=== PATIENT | male | born 1995 | race African-American/Black ===

== ENCOUNTER 2023-07-09 09:00 | Day surgery (SDC) | payer OTHER, MEDICAID ==
[2023-07-04 15:22] VITALS: BP 133/83
[~2023-07-09] VITALS: Ht 172.7 cm; Wt 95.5 kg
[2023-07-09 09:09] VITALS: BP 139/91
--- NOTE | 2023-07-09 10:21 | NUR ---
07/09/23 Jammie1 Meera Rivera 1014-PATIENT ARRIVED TO PACU ON 6L MASK RR EVEN. HOB ELEVATED. PATIENT REACTIVE TO VERBAL STIMULI REACHING HANDS TO NOSE RN ORIENTING PATIENT. PATIENT REMAINS VERY DROWSY EYES CLOSED. DRESSING TO NOSE CDI. SR. IVF INFUSING.
--- NOTE | 2023-07-09 10:55 | NUR ---
PT ARRIVES TO UNIT VIA STRETCHER FROM PACU. PT REPORTS PAIN 3/10 AND DESCRIBES THIS PAIN BURNING, BUT THAT IT IS TOLERABLE AT THIS TIME. PT REPORTS NO NAUSEA, DIZZINESS, OR SOB. VS TAKEN. SMALL AMOUNT OF DRAINAGE OUT OF RT NARE OF NOSTRIL, DRIP PAD IN PLACE. KENDRICK DRESSING AND PACKING REMAIN INTACT. PT IS DROWSY BUT ORIENTED. ICE WATER, APPLESAUCE, AND CRACKERS PROVIDED AT THIS TIME, PT TOLERATES WITHOUT DIFFICULTY SWALLOWING. CALL LIGHT WITHIN REACH, PT REPORTS NO FURTHER NEEDS AT THIS TIME.
[2023-07-09 10:57] VITALS: BP 147/106
[2023-07-09 11:50] VITALS: BP 153/93
--- NOTE | 2023-07-09 11:50 | NUR ---
IN PT ROOM FOR VS AND ASSESSMENT. PT REPORTS NO CHANGE IN PAIN LEVEL AT THIS TIME, REMAINS TOLERABLE, NO PRN MEDS GIVEN. DRESSING REMAINS INTACT. SMALL AMOUNT OF SS DRAINAGE FROM RT NARE, DRIP PAD IN PLACE. PT REPORTS NEED TO URINE VOID. PT REPORTS NO DIZZINESS OR NAUSEA W/STANDING AT BEDSIDE, GAIT IS STEADY. STANDBY ASSIST TO RESTROOM. PT URINE VOID 500 CLEAR/YELLOW URINE. PT BACK IN ROOM GETTING DRESSED, CALL LIGHT AT BEDSIDE FOR ASSISTANCE. PT STATES VERBAL UNDERSTANDING OF EDUCATION REGARDING NO BENDING OVER D/T INCREASE OF DRAINAGE.
--- NOTE | 2023-07-09 12:05 | NUR ---
THIS RN IN ROOM AT THIS TIME FOR DISCHARGE EDUCATION, PT STATES NO FURTHER QUESTIONS AT THIS TIME. ANTONINA (BROTHER) AT BEDSIDE FOR DISCHARGE EDUCATION WELL. PT ALSO ENCOURAGED TO FOLLOW-UP WITH PCP REGARDING ELEVATED BP, PT STATES THIS IS NORMAL FOR HIM AND RUNS IN FAMILY, PT STATES VERBAL UNDERSTANDING. IV DC'ED, CATH TIP INTACT, GAUZE/COBAN IN PLACE. PT OFF OF UNIT VIA WC BY THIS RN INTO PASSENGER SEAT OF VEHICLE, ALL BELONGINGS IN PT POSSESSION AT THIS TIME. PT STATES NO FURTHER NEEDS AT THIS TIME. NEW DRIP PAD IN PLACE AND MATERIALS FOR DRIP PAD CHANGES PROVIDED.
--- NOTE | 2023-07-16 11:28 | OR ---
[facility] [address] [place], [place] [address] Signed DATE OF OPERATION: 07/09/2023 SURGEON: Anthony Hdez MD PREOPERATIVE DIAGNOSIS: Nasal obstruction due to septal deformity and inferior turbinate hypertrophy. POSTOPERATIVE DIAGNOSIS: Nasal obstruction due to septal deformity and inferior turbinate hypertrophy. PROCEDURE: Septoplasty, cautery bilateral inferior turbinates. ANESTHESIA: General LMA. Lefty GUTIERRES. PREOPERATIVE HISTORY: Rajesh is a 28-year-old male with nasal obstruction, unresponsive to appropriate medications caused by septal deformity and inferior turbinate hypertrophy. He was taken to the operating room for the above-mentioned procedures. PROCEDURE AND FINDINGS: After informed consent, the patient was taken to the operating room, placed in a supine position where general LMA anesthesia was induced. The patient and procedure were verified. The patient received preoperative intranasal oxymetazoline and intravenous Ancef. Headlight speculum exam of the nasal cavity showed septal deformity with a large spur and flexion on the right side. The septal mucosa was injected with 1% lidocaine with epi. The mucosa was elevated off the deviated septal bone and cartilage and the deviation was removed with the Arlet. Airway was improved in this manner. The inferior turbinates were then cauterized with a long handle needle point cautery starting on the left side. Multiple transmucosal passes on the inferior turbinate. On the medial inferior surface starting anteriorly extending all the way back posteriorly, excellent shrinkage, decongestion of the turbinate was obtained. Minimal bleeding. Same procedure on the right inferior turbinate. Hemostasis was verified. Packing was then placed, trimmed Merocel one piece each side, coated with Neosporin, tied anteriorly over a pad. The pharynx was suctioned clear of blood and secretions. The patient was then awakened, extubated, transported to recovery room in good condition. COMPLICATIONS: Electronically Signed By: ANTHONY HDEZ MD 07/16/23 1128 PATIENT NAME: RAJESH ENCINAS OPERATIVE REPORT DATE OF : [birth year] REPORT #: [id number] PHYSICIAN: ANTHONY HDEZ MD PCP: GRACIA CAREY MD REPORT IS CONFIDENTIAL AND NOT TO BE RELEASED WITHOUT AUTHORIZATION [facility] [address] [place], [place] [address] Signed No complications. BLOOD LOSS: Minimal. SPECIMEN: No specimen. DRAINS: No drains. PACKING: One piece of Merocel in each nostril. Anthony Hdez MD GC/MODL /[id number] Copies: ~ Electronically Signed By: ANTHONY HDEZ MD 07/16/23 1128 PATIENT NAME: RAJESH ENCINAS OPERATIVE REPORT DATE OF : [birth year] REPORT #: [id number] PHYSICIAN: ANTHONY HDEZ MD PCP: GRACIA CAREY MD REPORT IS CONFIDENTIAL AND NOT TO BE RELEASED WITHOUT AUTHORIZATION
== END 2023-07-09 12:20 | disposition home or self-care (01) ==
LOC: DS 09:00 → OPS 09:00
PROVIDERS: ATTEND Otolaryngology
PROC: 09BM0ZZ Excision of Nasal Septum, Open Approach (ICD-10-PCS; principal; 2023-07-09 11:00)
DX: J34.2 Deviated nasal septum (principal); J34.3 Hypertrophy of nasal turbinates; J30.9 Allergic rhinitis, unspecified
CPT/HCPCS: 00160; A9270; J0131; J0690; J1100; J2001; J2250; J2405; J2704; J3010; J3490; J7121

== ENCOUNTER 2024-11-19 23:00 | Emergency (ER) | payer OTHER ==
[~2024-11-19] VITALS: Ht 172.7 cm; Wt 93.9 kg
[2024-11-19] MEDS ORDERED: DIPHTH,PERTUSS(ACELL),TET VAC 0.5 ML SYRINGE IM ONE (23:30)
[2024-11-19] MEDS ORDERED: AMOXICILLIN/CLAVULANATE K 875 MG HOME.PACK PO ONE (23:45)
[2024-11-19] MEDS ORDERED: AMOX TR-K CLV1 EAC1 PO (23:54)
[2024-11-20 00:13] VITALS: BP 134/89
[2024-11-20] MEDS ORDERED: FLUOXETINE HCL20 MG PO (00:13)
== END 2024-11-20 00:16 | disposition home or self-care (01) ==
LOC: ED 23:00
DX: S61.254A Open bite of right ring finger without damage to nail, initial encounter (principal); W54.0XXA Bitten by dog, initial encounter; Z79.899 Other long term (current) drug therapy
CPT/HCPCS: 90471; 90715; 99283-25